=== PATIENT | female | born 1960 | race Caucasian/White ===

== ENCOUNTER 2018-03-23 11:08 | Inpatient (IN) | payer BC, OTHER ==
[2018-03-23] MEDS ORDERED: Fentanyl 100 MCG/2 ML VIAL ONE (11:41)
[2018-03-23] MEDS ORDERED: Mag-Al 1200 mg/1200 mg/30 ML UDCUP PO PRN (12:06)
[2018-03-23] MEDS ORDERED: Bisacodyl 10 MG SUPP PR PRN (12:06)
[2018-03-23] MEDS ORDERED: hydrALAZINE 20 MG/ML VIAL SLOW IVP PRN (12:06)
[2018-03-23] MEDS ORDERED: Labetalol HCl 100 MG/20 ML VIAL SLOW IVP PRN (12:06)
[2018-03-23] MEDS ORDERED: ISOVUE-370 76%-LOCM 1 ML ONE (12:15)
--- NOTE | 2018-03-23 12:15 | RAD ---
FRONTAL RADIOGRAPH CHEST: 03/23/2018 HISTORY: Syncope. Trauma. COMPARISON: None. FINDINGS: There is a CT injectable left Port-A-Cath, with the distal tip overlying the region of the cavoatrial junction. No pneumothorax, pleural fluid, focal consolidation, or alveolar edema. IMPRESSION: No acute findings. POS: [facility]
--- NOTE | 2018-03-23 12:27 | CT ---
HEAD CT WITHOUT CONTRAST: HISTORY: Hematoma. Post traumatic pain and injury. Loss of consciousness. COMPARISON: None. TECHNIQUE: A noncontrast head CT is performed from the skull base to the skull vertex. FINDINGS: There is a nondisplaced right temporal bone fracture. There is adequate aeration of the sinuses and mastoid air cells. There is evidence of multifocal intraparenchymal hemorrhagic contusions. The lar gest contusion is along the right frontal lobe, measuring 3.2 x 2.4 cm. The second smaller hemorrhag ic contusion in the left frontal lobe measures 1.3 x 1.3 cm. There is also a hemorrhagic contusion a long the posterior left temporal lobe, measuring 1.1 x 0.8 cm. There is evidence of subarachnoid and subdural blood. The largest subdural collection is along the left temporal convexity, measuring 7 m m. There is mass effect upon the left temporal pole. There is no evidence of intraventricular hemorrhage. There is no evidence of hydrocephalus. There is soft tissue swelling along the right temporal occipital parietal scalp. IMPRESSION: Extensive intracranial hemorrhage. The results of the study were discussed with Dr. Nye on 03/23/2018 at 11:57 a.m. CODE CR POS: [facility]
[2018-03-23 12:40] LABS: Hemoglobin 8.1 g/dL (12.0-16.0); Mean Corpuscular Hemoglobin 32.7 pg (27.0-31.0); Mean Platelet Volume 7.6 fL (7.4-10.4); Platelet Count 169 thou/uL (130-400); RBC Distribution Width 12.6 % (11.5-14.5); Red Blood Cell (RBC) Count 2.49 mill/uL (4.20-5.40); White Blood Cell (WBC) Count 4.5 thou/uL (4.8-10.8)
[2018-03-23 12:43] LABS: INR-International Normal Ratio 1.1; PTT 32.2 SEC (22.9-36.1); Prothrombin Time 14.6 SEC (12.0-14.7)
[2018-03-23 12:51] LABS: D-Dimer Test 11.4 *mcg/mL (0.27-0.43)
[2018-03-23 12:55] LABS: ALT (SGPT) 9 U/L (8-55); AST (SGOT) 21 U/L (5-34); Albumin 3.6 g/dL (3.5-5.0); Alkaline Phosphatase 83 U/L (40-150); Anion Gap 13 mmol/L (10-20); BUN (Urea Nitrogen) 20 mg/dL (9.8-20.1); Bilirubin, Total 0.5 mg/dL (0.2-1.2); CK (CPK) 53 U/L (29-168); Calc. Creatinine Clearance 0 mL/min (70-130); Calcium 8.2 mg/dL (7.8-10.44); Carbon Dioxide 22 mmol/L (22-29); Chloride 107 mmol/L (98-107); Estimated GFR-MDRD 72; Globulin 2.3 g/dL (2.4-3.5); Glucose 174 mg/dL (70-105); Lipase 11 U/L (8-78); Potassium 4.3 mmol/L (3.5-5.1); Protein, Total 5.9 g/dL (6.0-8.3); Sodium 138 mmol/L (136-145)
[2018-03-23 12:59] LABS: CKMB 0.9 ng/mL (0-6.6); Troponin I Less than 0.010 ng/mL (< 0.028)
[2018-03-23 13:03] LABS: MDiff Complete? YES; Polychromasia SLIGHT = 2-3 cells (100X) (0-2/hpf)
--- NOTE | 2018-03-23 13:51 | CT ---
CTA OF THE HEAD WITH IV CONTRAST UTILIZING 3D REFORMATTED IMAGING: COMPARISON: CT of the brain dated 03/23/18. FINDINGS: There is mild vascular calcification involving the intracranial left vertebral artery. No hemodynami mak significant stenosis, occlusion, or aneurysmal formation is present. The intraparenchymal contusions involving the frontal lobe and inferior temporal lobes appear largely similar in size. Subdural collection overlying the left convexity and left cerebral convexity is st able. The largest collection seen around the region of the lateral temporal lobe measuring 9 mm wher e it previously measured approximately 7.3 mm. No appreciable midline shift is grossly evident. A s mall amount of subdural hemorrhage overlying the frontal convexities are similar-appearing. Componen t of subarachnoid hemorrhage seen within the left sylvian fissure is similar appearing. A small amou nt of interpendicular hemorrhage is now seen within the interpedicular cistern. IMPRESSION: 1. No hemodynamically significant stenosis, occlusion, or aneurysmal formation demonstrated. 2. Subdural hematoma overlying the left cerebral convexity appears to be slightly more prominent laura n on the prior examination. This measures 9 mm in its greatest dimension overlying the left temporal lobe. Intraparenchymal contusions involving the inferior bilateral frontal and temporal lobes appea r largely stable. There is a subdural collections overlying the frontal lobes that appears similar. A small amount of subarachnoid hemorrhage seen in the left sylvian fissure appears similar. The nondepressed, nondisplaced right temporal bone fracture is not appreciably changed. 3. Findings are called to Dr. Nye at 1:32 p.m. on 03/23/18. CODE CR POS: [facility]
[2018-03-23 14:20] VITALS: BMI 23.1
[2018-03-23] MEDS: Sodium Chloride 0.9% 1,000 ML IV SCH (14:26)
[2018-03-23] MEDS: Acetaminophen 1,000 MG in Premix Bag 1 BAG IVPB PRN ×2 (15:27→23:52)
--- NOTE | 2018-03-23 15:27 | HP ---
HISTORY OF PRESENT ILLNESS: Ms. Kirk is a 58-year-old woman who was transferred from [facility] in [place] to [facility] via EMS after a syncope and fall resulted in cerebral hemorrhage confirmed by CT. We will perform both there and performed in the department here at [facility]. A CT of the head reveals right-sided temporal bone fracture that is nondisplaced and nondepressed. She has some right-sided subdural hematoma measuring only 2 mm in greatest depth. Filipe fenton has a left-sided frontotemporal convexity subdural hematoma measuring 9 mm in greatest depth of the sylvian fissure with some subarachnoid blood there as well. She also has a right frontal cerebral c ontusion and a right temporal and cerebral contusion. She does not take any blood thinning medicatio ns that she is aware of. She is a breast cancer patient who is undergoing current chemotherapy treat ment which may be contributing to some type of coagulopathy or maybe she perhaps has an underlying co agulopathy that we are not aware of. According to the family, her syncopal event came on after a cou ghing spell where she fell and then struck the right occipital portion of her head. She has no other injuries of note at bedside. PAST MEDICAL HISTORY: Hypertension and breast cancer. PAST SURGICAL HISTORY: Foot surgery. CURRENT MEDICATIONS: Undocumented. PHYSICAL EXAMINATION: GENERAL: The patient is at the bedside. She is under obvious distress, complaining of headache freq uently during our conversations. She is oriented to date of , the current date, the location, a nd situation that she is in, she does not recall the events of this morning; however, before she was transferred. HEENT: Pupils are equal, round, reactive to light. Extraocular movements are intact. EXTREMITIES: Her upper and lower extremity motor exam is normal. Gross cranial nerve function is no rmal. ASSESSMENT: Acute intracerebral hemorrhage and subdural hematoma. PLAN: At this time, we will admit the patient to the ICU. We will consult the Medicine Service for evaluation of her syncopal event. Also ordered a CTA here in the department to evaluate any possible vascular source of her bleeding. She will need an hour neuro checks with head of bed elevated at 30 degrees. For now, we will keep her systolic pressures under 140 until we can confirm there is no v ascular source and if that is the case, we can relax to 160 systolic, n.p.o. for now.
--- NOTE | 2018-03-23 15:32 | ULT ---
BILATERAL LOWER EXTREMITY VENOUS ULTRASOUND WITH DOPPLER: Date: 03/23/18 HISTORY: Bilateral lower extremity edema. Swelling. COMPARISON: None. TECHNIQUE: Putnam scale, color flow, Doppler imaging, and spectral waveform analysis performed of the left and rig ht lower extremity deep venous system. FINDINGS: Bilaterally, there is compressibility, presence of flow, and augmentation in the common femoral, femo ral vein, and popliteal vein. There is flow in bilateral greater saphenous veins, profunda veins, and posterior tibial veins. IMPRESSION: No evidence of thrombus in the left or right lower extremity deep venous system. POS: [facility]
[2018-03-23] MEDS: Ondansetron HCl/PF 4 MG/2 ML Vial IVP PRN (15:33)
[2018-03-23] MEDS ORDERED: Prevnar 13-Val Conj/PF 0.5 ML SYRINGE IM ONE (16:30)
--- NOTE | 2018-03-23 16:54 | NM ---
VENTILATION PERFUSION EVALUATION: 03/23/18 CLINICAL HISTORY: Elevated D-dimer. FINDINGS: RADIOPHARMACEUTICAL: Utilized are 6.3 millicuries technetium 99m MAA IV and Xenon 15 millicuries inhaled. FINDINGS: There is homogeneous radiotracer distribution on the ventilation portion of the exam. Perfusion imagi ng reveals mild subpleural irregularity without a moderate or large perfusion defect. IMPRESSION: Low probability VQ scan for pulmonary embolus. POS: [facility]
--- NOTE | 2018-03-23 20:19 | CT ---
CT BRAIN 03/23/18 HISTORY: Followup intracranial hemorrhage. Noncontrast enhanced CT images of the brain is obtained on 03/23/18. Comparison made to previous exam from earlier in the day on 03/23/18. Noncontrast enhanced CT images of the brain demonstrates again right temporal bone squamosal portion nondisplaced fracture, unchanged since the previous exam. A small right parietal scalp hematoma is al so seen. A small subdural hematoma is again seen in the right middle cranial fossa. No definite evidence of ep idural hematoma seen. Again, right frontal brain contusion and hematoma again seen, not significantly changed since the pre vious exam. There is also left frontal brain contusion and hematoma seen. A small left frontal subdural hematoma also seen. There is a left middle cranial fossa subdural hematoma. This has not significantly changed since the previous exam. Area of posterior temporal lobe brain contusion and hemorrhage also seen. There is a slightly area of newly developed density in the right frontoparietal subarachnoid space, p ossibly representing a newly developed small area of subarachnoid hemorrhage in this region. IMPRESSION: 1. Multiple bilateral intracranial (intraparenchymal, subdural and subarachnoid) hemorrhages as described above. The overall size of the hemorrhage has not significantly increased. 2. Right temporal bone skull fracture. POS: [facility]
[2018-03-23] MEDS: Famotidine/PF 20 mg/2ml Vial SLOW IVP SCH (21:57)
--- NOTE | 2018-03-23 22:02 | HP ---
DATE OF ADMISSION: 03/23/2018 ATTENDING PHYSICIAN: Dr. Eaton. TRAUMA ACTIVATION: Not applicable. HISTORY OF PRESENT ILLNESS: Jaclyn Kirk is a 58-year-old female, who presented to [place] as a transfer from [facility] status post fall with subarachnoid and subdural hemorrhage. The patient is amnestic of events. Therefore, history is obtained from other medical providers, the patient and ER records. Per patient, she woke this morning and was in her normal state of health with the exception of a headache. She was at work when she had a syncopal event. Per my discussion with the neurosurgical team, bystanders reported the patient had a coughing fit and then had her syncopal event. She was taken to the emergency room after the event and found to have bifrontal intraparenchymal hemorrhage, subarachnoid hemorrhage and subdural hemorrhage. She was transferred to [facility] for higher level of care. Upon my evaluation, she has a chief complaint of headache that is worsened with movement and loud noise, but improved with pain medication. She is currently a GCS of 15 although she is somewhat slow to answer some questions and is having difficulty recalling details. PAST MEDICAL HISTORY: Significant for breast cancer for which she is currently receiving chemotherapy. Her oncologist is located in [place]. ALLERGIES: None. HOME MEDICATIONS: Unknown chemotherapy regimen, lisinopril 25 mg p.o. daily, Toprol-XL 20 mg p.o. at bedtime. CHRONIC MEDICAL ILLNESSES: Include hypertension and stage I breast cancer. PAST SURGICAL HISTORY: The patient denies. 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 She denies alcohol, tobacco or illicit drug use. FAMILY HISTORY: Significant for father that is from renal failure. Mother from COPD. REVIEW OF SYSTEMS: The patient reports nausea that has been associated with her chemotherapy and is at her baseline at this time. She denies dizziness, unsteady gait, change in vision, fevers, chills, vomiting, change in bowel or bladder habits. She further denies shortness of breath, chest pain, presyncope , dyspnea on exertion, calf pain, lower extremity edema or swelling. PHYSICAL EXAMINATION: VITAL SIGNS: On evaluation, pulse 110, blood pressure 112/72, respirations 16, O2 sat 100% on room air. GENERAL: Resting in bed, in no acute distress. HEAD: Normocephalic. EYES: Pupils are PERRLA. Extraocular movements are intact. NECK: Supple. Trachea is midline. CHEST: Atraumatic. Normal work of breathing, symmetric rise. LUNGS: Clear to auscultation bilaterally. CARDIOVASCULAR: Regular rate and rhythm. GASTROINTESTINAL: Abdomen is soft, nontender, nondistended. Bowel sounds are positive. BACK: Reported as being within normal limits. EXTREMITIES: Bilateral upper extremities within normal limits. Bilateral lower extremities within normal limits. No pedal edema or swelling. NEUROLOGIC: GCS is 15. No focal deficit is noted. LABORATORY FINDINGS: WBC 4.5, hemoglobin 8.1, hematocrit 24.7, platelet count 169. INR is 1.1. D-dimer is 11.40. Sodium 138, potassium 4.3, chloride 107, carbon dioxide 22, BUN 20, creatinine 0.81, glucose 174. AST and ALT within normal limits. Troponin less than 0.010. EKG with sinus tachycardia and nonspecific T-wave abnormalities. RADIOGRAPHIC FINDINGS: CT of the brain with bifrontal intraparenchymal hemorrhage, subarachnoid hemorrhage and subdural hemorrhage. Chest x-ray without acute cardiopulmonary process per radiology read. CTA of the brain without any obvious evidence of stenosis, occlusion, or aneurysm per radiology read. ASSESSMENT: 1. Status post syncope. 2. Traumatic brain injury with bilateral intraparenchymal hemorrhage, subarachnoid and subdural hemorrhage. 3. Headaches/acute traumatic pain. 4. Breast cancer, on chemotherapy. 5. History of hypertension. 6. Elevated D-dimer. 7. Tachycardia. PLAN: Admit to ICU with q.1 hour neuro checks. Elevate head of bed. Control blood pressure with a goal systolic of less than 150. DVT and PE should be ruled out. Echocardiogram for possible cause of syncope. Per discussion with Neurosurgery, the patient should remain n.p.o. for now. They plan for repeat head CT later this evening. Pain management with IV analgesia at this time. Plans for admission were discussed with the patient and all questions were answered at the time of this dictation. Trauma attending has been notified of admission. SARTHAK
[2018-03-24] MEDS: Sodium Chloride 0.9% 1,000 ML IV SCH (02:25)
[2018-03-24 04:06] LABS: Anion Gap 10 mmol/L (10-20); BUN (Urea Nitrogen) 17 mg/dL (9.8-20.1); Calc. Creatinine Clearance 79 mL/min (70-130); Calcium 8.6 mg/dL (7.8-10.44); Carbon Dioxide 25 mmol/L (22-29); Chloride 107 mmol/L (98-107); Estimated GFR-MDRD 81; Glucose 96 mg/dL (70-105); Phosphorus 3.2 mg/dL (2.3-4.7); Potassium 4.3 mmol/L (3.5-5.1); Sodium 138 mmol/L (136-145)
[2018-03-24 04:34] LABS: Band 4 % (5-11); Eosinophils 2 % (0-10); Hemoglobin 7.4 g/dL (12.0-16.0); Lymphocytes 42 % (21-51); MDiff Complete? YES; Mean Corpuscular HGB CONC 34.7 g/dL (32.0-36.0); Mean Corpuscular Hemoglobin 34.3 pg (27.0-31.0); Mean Corpuscular Volume 98.9 fL (78.0-98.0); Mean Platelet Volume 7.9 fL (7.4-10.4); Monocytes 2 % (0-10); Neutrophil 50 % (42-75); PLT Morphology Comment Appears Adequate; Platelet Count 146 thou/uL (130-400); RBC Distribution Width 12.7 % (11.5-14.5); Red Blood Cell (RBC) Count 2.17 mill/uL (4.20-5.40); White Blood Cell (WBC) Count 1.1 thou/uL (4.8-10.8)
[2018-03-24] MEDS: Acetaminophen 1,000 MG in Premix Bag 1 BAG IVPB PRN (05:34)
[2018-03-24] MEDS: Ondansetron HCl/PF 4 MG/2 ML Vial IVP PRN ×2 (08:21→13:18)
[2018-03-24] MEDS: Famotidine/PF 20 mg/2ml Vial SLOW IVP SCH ×2 (08:27→21:42)
[2018-03-24] MEDS ORDERED: traMADol HCl 50 MG TAB PO PRN (08:45)
[2018-03-24] MEDS ORDERED: traMADol HCl 50 MG TAB PO SCH (08:45)
--- NOTE | 2018-03-24 11:20 | PRG ---
DATE OF SERVICE: 03/24/2018 SUBJECTIVE: This is a 58-year-old female who presented to [place] ER status post syncopal event a ssociated with fall and traumatic brain injury. Overnight, she remained a GCS of 15. A repeat head CT was stable. She was started on a regular diet per Neurosurgery. This morning, she has a chief co mplaint of headache, but otherwise vocalizes no complaint. She states her pain is tolerable with the addition of pain medications. OBJECTIVE: VITAL SIGNS: Temperature 98.5, pulse 98, respirations 16, O2 sat 100% on room air, blood pressure 12 9/71. GENERAL: Resting in bed in no acute distress. EYES: Conjunctival pallor noted. Pupils are PERRLA. Extraocular movements are intact. CHEST/PULMO NARY: Normal work of breathing. Symmetric rise. CARDIOVASCULAR: Tachycardic with no obvious murmurs, rubs or gallops. GASTROINTESTINAL: Abdomen is soft, nontender, nondistended. MUSCULOSKELETAL: Moves all extremities x4. NEUROLOGIC: GCS of 15. No focal deficit noted. LABORATORY DATA: WBC 1.1, hemoglobin 7.4, hematocrit 21.5, platelet count 146. Sodium 138, potassiu m 4.3, chloride 107, carbon dioxide 25, BUN 17, creatinine 0.73, glucose 96, phosphorus 3.2, magnesiu m 2.0. RADIOGRAPHIC FINDINGS: CT of the brain with stable bilateral intracranial hemorrhages and right temp oral bone fracture per radiology read. ASSESSMENT: 1. Status post syncope, unknown etiology. 2. Traumatic brain injury with intraparenchymal hemorrhage, subarachnoid and subdural hemorrhage. 3. Post-concussive headache. 4. Breast cancer, on chemotherapy. 5. History of hypertension. 6. Leukopenia and acute anemia. PLAN: Transferred to stroke floor. Initiate PT, OT and speech language pathology for cognition. Tr ansfuse 1 unit of PRBC for symptomatic anemia. Oncology consult, given patient's recent chemotherapy and neutropenia. Neutropenic precautions at this time. Follow up pending echocardiogram. Otherwis e, supportive care as ordered. Continue p.o. pain management. Discontinue IV analgesics at this arik e. The patient was discussed with trauma attending.
[2018-03-24] MEDS: Acetaminophen 500 MG TAB PO SCH ×3 (11:32→22:57)
[2018-03-24] MEDS: traMADol HCl 50 MG TAB PO PRN (13:17)
[2018-03-24] MEDS ORDERED: Ondansetron HCl/PF 8 MG in Sodium Chloride 0.9% 50 ML IVPB PRN (15:24)
[2018-03-24] MEDS ORDERED: Promethazine 25 MG TAB PO PRN (15:25)
[2018-03-24] MEDS: Promethazine 25 MG TAB PO PRN (15:40)
[2018-03-24 16:12] LABS: Hemoglobin 9.1 g/dL (12.0-16.0)
[2018-03-25] MEDS: Promethazine 25 MG TAB PO PRN ×2 (02:27→11:07)
[2018-03-25] MEDS: traMADol HCl 50 MG TAB PO PRN ×3 (02:31→18:39)
[2018-03-25] MEDS: Acetaminophen 500 MG TAB PO SCH ×4 (05:09→20:04)
[2018-03-25 05:18] LABS: Hemoglobin 8.8 g/dL (12.0-16.0); Mean Corpuscular HGB CONC 34.9 g/dL (32.0-36.0); Mean Corpuscular Hemoglobin 33.4 pg (27.0-31.0); Mean Corpuscular Volume 95.9 fL (78.0-98.0); Mean Platelet Volume 7.5 fL (7.4-10.4); Platelet Count 166 thou/uL (130-400); RBC Distribution Width 13.4 % (11.5-14.5); Red Blood Cell (RBC) Count 2.63 mill/uL (4.20-5.40); White Blood Cell (WBC) Count 0.5 thou/uL (4.8-10.8)
[2018-03-25 05:45] LABS: Hypochromia SLIGHT = 6-15 cells (100X) (0-5/hpf); MDiff Complete? YES; PLT Morphology Comment Appears Adequate
--- NOTE | 2018-03-25 09:02 | CON ---
DATE OF CONSULTATION: 03/24/2018 REASON FOR CONSULTATION: Breast cancer. HISTORY OF PRESENT ILLNESS: Ms. Kirk is a pleasant 58-year-old female with a history of stage I breast cancer of the right breast. She is a patient of [facility] in [place]. She received cycle 2 of Adriamycin and Cytoxan last Monday. She did receive Neulasta on Monday. She was at work yesterday when she began to have a cough and she apparently has what sounds like a vasovagal response and passed out, hit her head. She was brought to the Emergency Room where she had bilateral intraparenchymal hemorrhage, subarachnoid and subdural hemorrhage. She has been stable since admission. CBC in the emergency room showed a white count of 4.5, hemoglobin of 8.1 and a platelet count of 169,000. This morning, her white count has dropped to 1.1 and hemoglobin to 7.4. Her platelets remain normal at 146,000. She complains of nausea, denies any diarrhea. This is cycle 2 of treatment. She did have nausea with her first cycle. She complains of poor appetite. PAST MEDICAL HISTORY: Right breast cancer. PAST SURGICAL HISTORY: Breast biopsy. ALLERGIES: No known drug allergies. HOME MEDICATIONS: 1. Lisinopril/hydrochlorothiazide daily. 2. Lorazepam p.r.n. 3. Megace 40 mg b.i.d. 4. Metoprolol 25 mg daily. 5. Ambien 5 mg p.r.n. FAMILY HISTORY: Renal disease and COPD. 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 No alcohol, tobacco or illicit drug use. REVIEW OF SYSTEMS: CONSTITUTIONAL: No fever, chills, night sweats. EYES: No blurred or double vision. ENT: No pain, hoarseness, sore throat, dysphagia. CARDIOVASCULAR: No chest pain, palpitations or syncope. RESPIRATORY: No shortness of breath, dyspnea on exertion or orthopnea. GASTROINTESTINAL: Positive for nausea, vomiting. No abdominal pain, diarrhea or constipation. GENITOURINARY: No dysuria or hematuria. MUSCULOSKELETAL: No joint or back pain. SKIN: No rash or pruritus. HEMATOLOGIC: No bleeding, bruising or clotting. NEUROLOGIC: Positive for headache. No weakness, numbness, tingling or seizure activity. PSYCHIATRIC: No anxiety or depression. PHYSICAL EXAMINATION: VITAL SIGNS: Temperature is 98.6, pulse is 90, respiratory rate 18, BP is 122/ 70. GENERAL: Well-developed, well-nourished female in no acute distress. HEENT: Normocephalic, atraumatic. Pupils are equal and reactive to light. She has alopecia. NECK: Supple. CARDIOVASCULAR: Regular rate and rhythm. LUNGS: Clear. ABDOMEN: Soft, nontender, bowel sounds are positive. EXTREMITIES: No clubbing, cyanosis or edema. SKIN: No rash. HEMATOLOGIC: No petechia or purpura. NEUROLOGICAL: Nonfocal. PSYCHIATRIC: The patient is alert and oriented and answering questions appropriately. PERTINENT LABORATORY DATA AND IMAGING DATA: Current WBCs are 1.1, hemoglobin 7.4, hematocrit 21.5, platelet count 146,000, 50% neutrophils, 4% bands, 42% lymphocytes. PT is 14.6, INR is 1.1, PTT is 32.2. Sodium is 138, potassium 4.3 , chloride 107, CO2 is 25, BUN is 17, creatinine 0.73, glucose is 96, calcium 8.6, phosphorus 3.2, magnesium 2.0, total bilirubin is 0.5, AST is 21, ALT is 9 , alkaline phosphatase is 83, creatinine kinase is 53. Troponin is negative. Serum total protein is 5.9, albumin 3.6, globulin 2.3, lipase is 11. Radiology per HPI. ASSESSMENT: 1. Right breast cancer, status post Adriamycin, Cytoxan chemotherapy last Monday. 2. Neutropenia secondary to chemo. 3. Nausea. 4. Intracranial bleed from fall. DISCUSSION: Patient did receive Neulasta with her chemotherapy. It will start to stimulate white blood cells in the next day or so. Continue neutropenic precautions until this happens. She is having some nausea at this time. We will increase her Zofran to 8 mg and add a low dose promethazine tablet as her Adriamycin can cause significant nausea. Her brain injury is being managed by Neurosurgery. She has a followup with [facility] in the next 8 days. Thank you for the consult. We will follow her remotely. SARTHAK
[2018-03-25] MEDS: Famotidine/PF 20 mg/2ml Vial SLOW IVP SCH (09:12)
--- NOTE | 2018-03-25 11:20 | PRG ---
DATE OF SERVICE: 03/25/2018 Ms. Kirk is a 58-year-old female with reported syncopal event, which led to a fall from a standing h eight. She had a closed head injury, which included small subdural hematomas, which are nonoperative in nature, but also intraparenchymal contusions. She has remained stable neurologically with a tricia sly normal neurologic exam. She does complain of significant headache, but do not anticipate need fo r neurosurgical intervention. We will follow up with her in the outpatient setting.
[2018-03-25] MEDS ORDERED: Scopolamine 1.5 mg/72 hour Patch TD SCH (12:15)
--- NOTE | 2018-03-25 12:37 | PRG ---
DATE OF SERVICE: 03/25/2018 SUBJECTIVE: This is a 58-year-old female, hospital day #3 status post syncopal event, which led to c losed-head injury. There were no acute overnight events. The patient has been seen and evaluated by Oncology team at our hospital. She has received Neulasta with her chemotherapy. She remains on harsh tropenic precautions. On trauma evaluation this morning, the patient had a chief complaint of headac he, but otherwise vocalized no complaint. OBJECTIVE: VITAL SIGNS: Temperature 99.2, pulse 104, respirations 16, O2 sat 95% on room air, blood pressure 13 6/80. GENERAL: Resting in bed in no acute distress. PULMONARY: Normal work of breathing. Symmetric rise. CARDIOVASCULAR: Regular rate and rhythm. GASTROINTESTINAL: Abdomen is soft, nontender, nondistended. MUSCULOSKELETAL: Moves all extremities x4. NEUROLOGIC: GCS of 15. No focal deficit is noted. LABORATORY FINDINGS: WBC 0.5, hemoglobin 8.8, hematocrit 25.2, platelet count 166. ASSESSMENT: 1. Status post syncopal events. 2. Closed-head injury. 3. Post-concussive headache and nausea. 4. Breast cancer, on chemotherapy. 5. History of hypertension. 6. Leukopenia and acute anemia secondary to above. PLAN: Encouraged incentive spirometry and pulmonary toileting. Continue to monitor the patient on a monitored bed. Follow up pending echocardiogram. The patient has remained normotensive throughout the duration of her hospital stay. We would continue to hold antihypertensives at this time and have her follow up as an outpatient prior to resuming them. Add scopolamine for persistent nausea. Cont inue pain management as ordered. Case management for disposition short stay at rehab versus home. A .m. labs. Patient has been discussed with trauma attending.
[2018-03-25] MEDS ORDERED: Ondansetron ODT 4 MG TAB PO PRN (15:30)
[2018-03-25] MEDS: Famotidine 20 MG TAB PO SCH (20:05)
[2018-03-26] MEDS: Acetaminophen 500 MG TAB PO SCH ×3 (04:08→14:13)
[2018-03-26 06:41] LABS: Band 19 % (5-11); Hemoglobin 9.4 g/dL (12.0-16.0); Lymphocytes 33 % (21-51); MDiff Complete? YES; Mean Corpuscular HGB CONC 34.3 g/dL (32.0-36.0); Mean Corpuscular Hemoglobin 32.6 pg (27.0-31.0); Mean Platelet Volume 7.6 fL (7.4-10.4); Monocytes 22 % (0-10); Neutrophil 22 % (42-75); PLT Morphology Comment Appears Adequate; Platelet Count 202 thou/uL (130-400); RBC Distribution Width 13.1 % (11.5-14.5); Red Blood Cell (RBC) Count 2.87 mill/uL (4.20-5.40); White Blood Cell (WBC) Count 1.7 thou/uL (4.8-10.8)
[2018-03-26] MEDS: Famotidine 20 MG TAB PO SCH (07:33)
--- NOTE | 2018-03-26 08:33 | PRG ---
DATE OF SERVICE: 03/24/2018 SUBJECTIVE: Ms. Kirk is on the second day of her hospital stay. She was admitted yesterday to the ICU and has already been transferred to the stroke unit by the trauma team for a fall with multiple s ite intraparenchymal contusions as well as bilateral subdural hemorrhages. A repeat CT scan last nig ht at 08:00 p.m. revealed stable hemorrhages in all occasions. The most significant is appearing to be the right frontal contusion. When I see her this morning, she is sitting in a chair at bedside in the stroke unit in minimal to no distress. She does have a headache, although it is significantly i mproved. She did have some nausea earlier this morning that was treated with Zofran. She is on neut ropenic precautions as her white blood cell count is 1.1. This is all likely secondary to her ongoin g chemotherapy. We will continue to follow during her hospital stay. No changes from Neurosurgery.
[2018-03-26] MEDS: traMADol HCl 50 MG TAB PO PRN (10:16)
[2018-03-26] MEDS ORDERED: Lorazepam 1 MG TAB PO PRN (11:00)
--- NOTE | 2018-03-26 11:19 | PRG ---
DATE OF SERVICE: 03/26/2018 SUBJECTIVE: Ms. Kirk is a 58-year-old woman who is 3 days status post ground level fall where she s ustained multiple intracerebral hemorrhagic contusions, a right convexity subdural hematoma as well a s scattered subarachnoid hemorrhages. The patient has remained hemodynamically and neurologically st able with a [place] coma scale of 15 since admission. This morning she complains of a slight headach e. She did have nausea over the weekend which has since improved with scopolamine patch. Her blood pressure medicines been on hold since this admission and the patient's blood pressure has r emained fairly normal. OBJECTIVE: VITAL SIGNS: Currently includes blood pressure 137/73, pulse is 95, respiratory rate 16, maximum tem perature in the last 24 hours is 98.9 degrees Fahrenheit, oxygen saturation is 96% on room air. HEENT: Reveals pupils equal, round, and reactive to light and accommodation. Extraocular muscles ar e intact bilaterally. She has no sclerae icterus present. There is no jugular venous distention not ed. HEART: Reveals regular rate and rhythm, no murmurs or gallops auscultated. CHEST: Clear to auscultation bilaterally. Breathing is regular and unlabored. ABDOMEN: Soft, nontender, nondistended. EXTREMITIES: Reveals 2+ radial and pedal pulses bilaterally. No ankle edema is present. NEUROLOGIC: Reveals no focal deficits present. LABORATORY DATA: Today includes a CBC with improving white blood cell count now at 1700. This is in contrast to 500 yesterday. Hemoglobin and hematocrit are stable at 9.4 and 27.3 respectively. Plat elet count is also stable at 202,000. 1. IMPRESSION: 1. Postoperative day #3 status post ground level fall. 2. Acute traumatic brain injury with multiple intracerebral hemorrhagic contusions, small left conve xity subdural hematoma and some scattered subarachnoid hemorrhages. 3. Resolving pancytopenia. PLAN: 1. Continue with physical and occupational therapy. 2. 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 3. The patient is otherwise hemodynamically and neurologically stable for transfer once bed becomes available.
[2018-03-26 15:35] VITALS: BP 139/105; TEMP 98.6
--- NOTE | 2018-03-27 02:11 | DIS ---
DATE OF ADMISSION: 03/23/2018 DATE OF DISCHARGE: 03/26/2018 ADMISSION DIAGNOSES: 1. Status post syncope. 2. Closed-head injury with traumatic brain injury. 3. History of breast cancer, on active chemotherapy. 4. Post-concussive headache. 5. Acute traumatic pain. 6. History of hypertension. 7. Elevated D-dimer. 8. Tachycardia. DISCHARGE DIAGNOSES: 1. Status post syncope. 2. Closed-head injury with traumatic brain injury. 3. History of breast cancer, on active chemotherapy. 4. Post-concussive headache. 5. Acute traumatic pain. 6. History of hypertension, now normotensive, off of antihypertensives. 7. Aplastic anemia and leukopenia, likely secondary to chemotherapy. CONSULTANTS: Dr. Mercado, Neurosurgery. PROCEDURES: None. IMAGIN. 03/23/2018, lower extremity duplex, negative for DVT. 2. 03/23/2018, V/Q scan, low probability for PE. 3. Echocardiogram, 03/25/2018, EF 50%-55% with no evidence of cardiomyopathy or wall motion abnormal ity. 4. CT of the brain, 03/23/2018, with stable intracranial hemorrhage. CTA of the brain with no evide nce of aneurysm, stenosis, or occlusion. HOSPITAL COURSE: Jaclyn Kirk is a 58-year-old female, who presented to [facility], as a transfer from [facility], status post syncopal event at work. The details of the event were somewhat unclear o n admission and patient was amnestic of event. She was evaluated in [facility] and un to have a closed-head injury, for which she was transferred to [facility] for higher level of care. Upon her evaluation here, patient was admitted by Trauma services. Her syncope workup rev ealed no obvious cause with the exception of the patient's history of hypertension on 2 antihypertens kalina. The patient remained normotensive and a GCS of 15 throughout the duration of her hospital stay . Her home antihypertensives have been held. She has worked with physical therapy and mobilized. S he was seen and evaluated by the Oncology team at our facility secondary to aplastic anemia and leuko penia, status post chemotherapy. Patient's white count did begin to recover, and no further recommen dations from Oncology was given. The patient was medically stable for discharge on 03/26/2018. DISCHARGE DISPOSITION: Home. DISCHARGE CONDITION: Good. PHYSICAL EXAMINATION: As documented in daily progress note dated 03/26/2018. DISCHARGE INSTRUCTIONS: Discharge instructions were provided to the patient and family at bedside, w ezequiel vocalized understanding. They should maintain a blood pressure log given patient's recent syncopa l events and discontinuation of her antihypertensives. They are to follow up with her primary care karla rosales with any concerns or changes to her blood pressures. DISCHARGE MEDICATIONS: The patient is to hold her home antihypertensives, but may resume any other h ome medications at this time. She should refrain from use of aspirin and ibuprofen, any anticoagulan ts until cleared by Neurosurgery. Discharge medications were as documented in the electronic medical record and included a new prescription for Ultram 50 mg 1 tab q.6 hours p.r.n. for severe pain #30 a nd scopolamine patch 1.5 mg transdermal 1 patch every 3 days for nausea and vertigo. FOLLOWUP APPOINTMENTS: The patient should follow up with her primary care provider in 3-5 days with a blood pressure log. She may also need a CBC at that time, a prescription for which was provided to the patient and family. She should follow up with her Oncology provider as scheduled within the t week. She needs to follow up with Neurosurgery and should call their office within 2 weeks if she has not been contacted with a date for followup. She does not need to follow up with [facility] services, formally, but may call our office for any questions. This is merely a summary of the britta jorge's hospitalization. For more in-depth information, please see her medical record in its entiret y.
== END 2018-03-26 16:10 | disposition home or self-care (01) | DRG 83 ==
LOC: ERS 11:08 → CCU 14:09 → 2SE 03-24 10:04
PROVIDERS: ADMIT Neurological Surgery; ATTEND Surgery
DX: S06.5X9A Traumatic subdural hemorrhage with loss of consciousness of unspecified duration, initial encounter (principal); D61.818 Other pancytopenia; C50.919 Malignant neoplasm of unspecified site of unspecified female breast; G89.11 Acute pain due to trauma; I10 Essential (primary) hypertension; R00.0 Tachycardia, unspecified; R55 Syncope and collapse; G44.309 Post-traumatic headache, unspecified, not intractable; Z79.899 Other long term (current) drug therapy; D72.819 Decreased white blood cell count, unspecified; D64.9 Anemia, unspecified; W18.30XA Fall on same level, unspecified, initial encounter; R40.2410 Glasgow coma scale score 13-15, unspecified time; W19.XXXA Unspecified fall, initial encounter
CPT/HCPCS: 36415; 36430; 70450; 70496; 71045; 78582; 80048; 80053; 82550; 82553; 83690; 83735; 84100; 84484; 85025; 85379; 85610; 85730; 86850; 86900; 86901; 90471; 90670; 93005; 93306; 93970; 96361; 96374; A9540; A9558; G0009; G0390; G8978-GP-CN; G8979-GP-CK; G8987-GO-CI; G8988-GO-CI; G8989-GO-CI; G9168-GN-CJ; G9169-GN-CI; J0131; J2270; J2405; J3010; P9016; Q0162; S0028

== ENCOUNTER 2018-05-01 10:05 | Outpatient (CLI) | payer BC ==
--- NOTE | 2018-05-01 11:39 | CT ---
CT BRAIN WITHOUT CONTRAST: Comparison: 03-23-18 History: Follow up skull fracture and intracranial hemorrhage. Technique: Multiple contiguous axial images were obtained in a CT of the brain without contrast. FINDINGS: There is encephalomalacia in the right frontal lobe, the previously seen hemorrhagic frontal contusio n has resorbed. The blood in the bilateral temporal convexities has also resolved. The lateral ventri cles are more prominent than on the prior examination. No interventricular hemorrhage is seen. The visualized paranasal sinuses and mastoid air cells are well aerated. IMPRESSION: 1. Resorption of intraparenchymal and extraaxial hemorrhage. 2. Slightly increased prominence of lateral ventricles. A follow up examination is recommended to ens ure hydrocephalus is not developing. POS: OLYA
== END 2018-05-01 10:06 | disposition home or self-care (01) ==
LOC: TBSIIMAG 10:05
PROVIDERS: ATTEND Neurological Surgery
DX: S06.5X1A Traumatic subdural hemorrhage with loss of consciousness of 30 minutes or less, initial encounter (principal)
CPT/HCPCS: 70450

== ENCOUNTER 2018-10-09 17:38 | Emergency (ER) | payer BC ==
[2018-10-09 19:36] LABS: #Basophils 0.1 thou/uL (0.0-0.2); #Eosinphils 0.1 thou/uL (0.0-0.7); #Lymphocytes 1.8 thou/uL (1.20-3.40); #Monocytes 0.9 thou/uL (0.11-0.59); #Neutrophils 5.3 thou/uL (1.40-6.50); %Basophils 1.2 % (0.0-1.0); %Eosinophils 1.6 % (0.0-10.0); %Lymphocytes 22.3 % (21.0-51.0); %Monocytes 10.3 % (0.0-10.0); %Neutrophils 64.7 % (42.0-75.0); Hemoglobin 11.2 g/dL (12.0-16.0); Mean Corpuscular HGB CONC 30.8 g/dL (32.0-36.0); Mean Corpuscular Hemoglobin 29.3 pg (27.0-31.0); Mean Corpuscular Volume 95.2 fL (78.0-98.0); Mean Platelet Volume 8.4 fL (7.4-10.4); Platelet Count 287 thou/uL (130-400); RBC Distribution Width 15.9 % (11.5-14.5); Red Blood Cell (RBC) Count 3.82 mill/uL (4.20-5.40); White Blood Cell (WBC) Count 8.2 thou/uL (4.8-10.8)
[2018-10-09 19:43] LABS: INR-International Normal Ratio 1.6; PTT 39.7 SEC (22.9-36.1); Prothrombin Time 18.8 SEC (12.0-14.7)
[2018-10-09 20:02] LABS: ALT (SGPT) 77 U/L (8-55); AST (SGOT) 140 U/L (5-34); Albumin 3.8 g/dL (3.5-5.0); Alkaline Phosphatase 120 U/L (40-150); Anion Gap 14 mmol/L (10-20); BUN (Urea Nitrogen) 26 mg/dL (9.8-20.1); Bilirubin, Total 1.4 mg/dL (0.2-1.2); CK (CPK) 70 U/L (29-168); Calc. Creatinine Clearance 0 mL/min (70-130); Calcium 9.5 mg/dL (7.8-10.44); Carbon Dioxide 23 mmol/L (22-29); Chloride 105 mmol/L (98-107); Estimated GFR-MDRD 57; Globulin 3.5 g/dL (2.4-3.5); Glucose 97 mg/dL (70-105); Potassium 4.2 mmol/L (3.5-5.1); Protein, Total 7.3 g/dL (6.0-8.3); Sodium 138 mmol/L (136-145)
--- NOTE | 2018-10-09 20:14 | CT ---
HEAD CT NONCONTRAST: Date: 10/09/18 COMPARISON: Reference made to prior brain CT exams dating back to 03/23/18. FINDINGS: There is bifrontal post-traumatic encephalomalacia, right greater than left, with associated ex vacuo dilatation of the ventricular system. No acute intracranial hemorrhage, mass effect, or midline shif t. No depressed calvarial fracture or pneumocephalus. No acute fluid level of the imaged paranasal si nuses. There is mild chronic ischemic disease. IMPRESSION: 1. No acute intracranial hemorrhage or mass effect 2. Bifrontal encephalomalacia. 3. Mild chronic ischemic disease. POS: OLYA
[2018-10-09 20:22] LABS: CKMB 1.4 ng/mL (0-6.6)
[2018-10-09] MEDS ORDERED: Loperamide HCl 2 MG CAP PO SCH (23:15)
[2018-10-09 23:37] LABS: Troponin I 0.041 ng/mL (< 0.028)
[2018-10-09] MEDS ORDERED: Loperamide HCl 2 MG CAP ONE (23:38)
== END 2018-10-10 00:06 | disposition home or self-care (01) ==
LOC: ERS 17:38
DX: S06.0X9A Concussion with loss of consciousness of unspecified duration, initial encounter (principal); I10 Essential (primary) hypertension; Z79.899 Other long term (current) drug therapy; V89.2XXA Person injured in unspecified motor-vehicle accident, traffic, initial encounter
CPT/HCPCS: 36415; 70450; 80053; 82550; 82553; 84484; 85025; 85610; 85730; 93005